=== PATIENT | female | born 1960 | race Caucasian/White ===

== ENCOUNTER 2020-10-30 18:44 | Emergency (ER) | payer OTHER ==
[2020-10-30] MEDS ORDERED: PERCOCET 10-321 EACH PO (22:11)
== END 2020-10-30 22:20 | disposition home or self-care (01) ==
LOC: FER 18:44
DX: S42.292A Other displaced fracture of upper end of left humerus, initial encounter for closed fracture (principal); S42.252A Displaced fracture of greater tuberosity of left humerus, initial encounter for closed fracture; I10 Essential (primary) hypertension; Z88.5 Allergy status to narcotic agent; W07.XXXA Fall from chair, initial encounter; Y93.D9 Activity, other involving arts and handcrafts; Y92.009 Unspecified place in unspecified non-institutional (private) residence as the place of occurrence of the external cause
CPT/HCPCS: 73060